=== PATIENT | female | born 1995 | race American Indian/Alaskan Native ===

== ENCOUNTER 2021-01-28 19:44 | Emergency (ER) | payer MEDICAID ==
[2021-01-28] MEDS ORDERED: Bacitracin Oint 1 GM U/D Packet TOP ONE (21:41)
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
== END 2021-01-28 22:00 | disposition home or self-care (01) ==
LOC: JP.ED 19:44
DX: S41.112A Laceration without foreign body of left upper arm, initial encounter (principal); Z72.0 Tobacco use; X78.9XXA Intentional self-harm by unspecified sharp object, initial encounter
CPT/HCPCS: 12002; 99283-25